=== PATIENT | female | born 1965 | race Hispanic/Latino ===

== ENCOUNTER 2022-06-22 12:24 | Inpatient (IN) | payer MEDICARE ==
[~2022-06-22] VITALS: Ht 152.4 cm; Wt 88.5 kg
[2022-06-22] MEDS ORDERED: ONDANSETRON HCL INJ 2MG/ML 2ML 2 MG/ML VIAL IV STA (15:18)
[2022-06-22] MEDS ORDERED: Vancomycin IV 1 GM in SODIUM CHLORIDE 0.9% 250ML 250 ML IV ONE (15:30)
[2022-06-22] MEDS ORDERED: Morphine 4mg INJECTION 4 MG/ML INJ IV ONE (15:30)
[2022-06-22] MEDS ORDERED: Vancomycin IV 1 GM VIAL ONE (15:38)
[2022-06-22] MEDS ORDERED: SODIUM CHLORIDE 0.9% 100 ML ONE (15:38)
[2022-06-22] MEDS ORDERED: SODIUM CHLORIDE 0.9% 250ML 250 ML ONE ×2 (15:38→18:49)
[2022-06-22] MEDS ORDERED: PIPERACILLIN/TAZOBACTAM 3.375 GM VIAL ONE (15:38)
[2022-06-22] MEDS ORDERED: CLINDAMYCIN 600MG / 50ML 50 ML IV ONE ×2 (15:57→16:00)
[2022-06-22] MEDS ORDERED: Clindamycin INJ 300 MG/50 ML 50 ML IV ONE ×2 (15:57→16:30)
[2022-06-22] MEDS ORDERED: SODIUM CHLORIDE FLUSH 10 ML SYR INJ PRN (17:00)
[2022-06-22] MEDS: CLINDAMYCIN PHOS 900MG/ 50ML 50 ML IV SCH (17:00)
[2022-06-22] MEDS ORDERED: Morphine 4mg INJECTION 4 MG/ML INJ IV PRN (17:00)
[2022-06-22] MEDS ORDERED: DEXTROSE 50% SYRINGE 50 ML IV PRN ×2 (17:00→23:00)
[2022-06-22] MEDS ORDERED: ONDANSETRON HCL INJ 2MG/ML 2ML 2 MG/ML VIAL IV PRN (17:00)
[2022-06-22] MEDS: LEVOFLOXACIN 500 MG TAB PO SCH (18:27)
[2022-06-22] MEDS ORDERED: GABAPENTIN600 MG PO (19:56)
[2022-06-22 21:16] VITALS: BP 103/71
[2022-06-22] MEDS: INSULIN LISPRO 100 UNIT/1 ML 3ML VIAL SQ SCH (21:36)
[2022-06-22 21:38] VITALS: BP 103/71
[2022-06-22] MEDS ORDERED: MELATONIN 5 MG TABLET PO PRN (23:00)
[2022-06-22] MEDS ORDERED: SIMETHICONE 80 MG CHEW PO PRN (23:00)
[2022-06-22] MEDS ORDERED: ALBUTEROL/IPRATROPIUM 3 ML NEB NEB PRN (23:00)
[2022-06-22] MEDS ORDERED: HYDRALAZINE HCL 20 MG/ML VIAL IV PRN (23:00)
[2022-06-22] MEDS ORDERED: HYDROCODONE/APAP 5MG-325MG TAB PO PRN (23:00)
[2022-06-22] MEDS ORDERED: BENZONATATE 100 MG CAP PO PRN (23:00)
[2022-06-22] MEDS ORDERED: DIPHENHYDRAMINE HCL 25 MG CAP PO PRN (23:00)
[2022-06-22] MEDS ORDERED: LIDOCAINE 4% PATCH TP PRN (23:00)
[2022-06-22] MEDS ORDERED: POTASSIUM CHLORIDE 20 MEQ TAB CR PO PRN (23:00)
[2022-06-23] MEDS ORDERED: IOPAMIDOL 370 MG/ML 100 ML INFUS..BTL INJ ONE (00:14)
[2022-06-23] MEDS: CLINDAMYCIN PHOS 900MG/ 50ML 50 ML IV SCH ×4 (00:44→23:57)
[2022-06-23 01:06] VITALS: BP 115/64
[2022-06-23 05:21] VITALS: BP 109/61
[2022-06-23 05:45] LABS: BASOPHILS % 0.4 % (0.0-1.0); EOSINOPHILS # (AUTO) 0.5 (0.0-0.4); EOSINOPHILS % 4.7 % (0.0-6.0); HEMATOCRIT 35.4 % (34.2-44.1); HEMOGLOBIN 11.2 g/dL (12.0-16.0); LYMPHOCYTES # (AUTO) 2.5 (1.0-3.2); LYMPHOCYTES % 24.9 % (18.0-39.1); MEAN CORPUSCULAR HEMOGLOBIN 28.8 pg (28-32); MEAN CORPUSCULAR HGB CONC 31.6 g/dL (31-35); MONOCYTES % 9.6 % (4.4-11.3); NEUTROPHILS % 59.9 % (38.7-80.0); PLATELET COUNT 312 x10e3/uL (140-360); RED BLOOD COUNT 3.89 x10e6/uL (3.6-5.1); RED CELL DISTRIBUTION WIDTH 12.3 % (11.7-14.4)
[2022-06-23 05:51] LABS: ALBUMIN 2.7 g/dL (3.5-5.0); ALBUMIN/GLOBULIN RATIO 0.7 (0.8-2.0); CALCIUM 8.5 mg/dL (8.4-10.2); CREATININE, SERUM 0.57 mg/dL (0.57-1.11)
[2022-06-23 06:08] LABS: MAGNESIUM 1.8 MG/DL (1.3-2.1); PHOSPHORUS 3.6 MG/DL (2.3-4.7)
[2022-06-23 06:28] LABS: THYROID STIMULATING HORMONE 3.691 uIU/mL (0.350-4.940)
[2022-06-23] MEDS: INSULIN LISPRO 100 UNIT/1 ML 3ML VIAL SQ SCH ×5 (07:30→19:33)
[2022-06-23 08:00] VITALS: BP_SYST 112; BP_DIAS 57; BP_DIAS 62
[2022-06-23] MEDS: PANTOPRAZOLE SOD 40 MG TABEC PO SCH (09:25)
[2022-06-23] MEDS: Morphine 2mg Syringe 2 MG/ML SYR IV PRN ×2 (09:46→17:33)
[2022-06-23] MEDS: ONDANSETRON HCL INJ 2MG/ML 2ML 2 MG/ML VIAL IV PRN ×2 (09:47→17:33)
[2022-06-23 12:05] VITALS: BP 110/65
[2022-06-23 16:02] VITALS: BP 104/60
[2022-06-23] MEDS ORDERED: ENOXAPARIN SOD INJ 40 MG/0.4 ML SYR SC SCH (17:00)
[2022-06-23] MEDS: LEVOFLOXACIN 500 MG TAB PO SCH (17:15)
[2022-06-24] VITALS (10 sets, daily range): BP systolic 100–131; BP diastolic 45–63
[2022-06-24] MEDS: Morphine 2mg Syringe 2 MG/ML SYR IV PRN ×4 (01:23→21:41)
[2022-06-24] MEDS: INSULIN LISPRO 100 UNIT/1 ML 3ML VIAL SQ SCH ×4 (06:44→21:49)
[2022-06-24] MEDS: PANTOPRAZOLE SOD 40 MG TABEC PO SCH (06:44)
[2022-06-24] MEDS: CLINDAMYCIN PHOS 900MG/ 50ML 50 ML IV SCH (09:41)
[2022-06-24] MEDS: ONDANSETRON HCL INJ 2MG/ML 2ML 2 MG/ML VIAL IV PRN ×2 (09:42→13:42)
[2022-06-24] MEDS ORDERED: HYDROCODONE/APAP 5MG-325MG TAB PO PRN (13:30)
[2022-06-24] MEDS: DOCUSATE SODIUM 100 MG CAP PO PRN (21:54)
[2022-06-25] VITALS (8 sets, daily range): BP systolic 115–147; BP diastolic 57–78
[2022-06-25] MEDS: Morphine 2mg Syringe 2 MG/ML SYR IV PRN ×3 (04:50→20:59)
[2022-06-25] MEDS: DIPHENHYDRAMINE HCL 25 MG CAP PO PRN (04:50)
[2022-06-25 05:46] LABS: BASOPHILS % 0.4 % (0.0-1.0); EOSINOPHILS # (AUTO) 0.4 (0.0-0.4); EOSINOPHILS % 4.4 % (0.0-6.0); HEMATOCRIT 35.1 % (34.2-44.1); HEMOGLOBIN 11.1 g/dL (12.0-16.0); LYMPHOCYTES # (AUTO) 2.2 (1.0-3.2); LYMPHOCYTES % 24.5 % (18.0-39.1); MEAN CORPUSCULAR HEMOGLOBIN 28.7 pg (28-32); MEAN CORPUSCULAR HGB CONC 31.6 g/dL (31-35); MEAN CORPUSCULAR VOLUME 90.7 fL (81-99); MONOCYTES # (AUTO) 0.7 (0.2-0.8); MONOCYTES % 7.9 % (4.4-11.3); NEUTROPHILS # (AUTO) 5.6 (2.1-6.9); NEUTROPHILS % 61.9 % (38.7-80.0); PLATELET COUNT 359 x10e3/uL (140-360); RED BLOOD COUNT 3.87 x10e6/uL (3.6-5.1); RED CELL DISTRIBUTION WIDTH 12.3 % (11.7-14.4)
[2022-06-25 06:07] LABS: ANION GAP 11.9 mmol/L (8-16); CALCIUM 8.4 mg/dL (8.4-10.2); CREATININE, SERUM 0.65 mg/dL (0.57-1.11); POTASSIUM 3.9 mmol/L (3.5-5.1)
[2022-06-25] MEDS: PANTOPRAZOLE SOD 40 MG TABEC PO SCH (09:57)
[2022-06-25] MEDS: INSULIN LISPRO 100 UNIT/1 ML 3ML VIAL SQ SCH ×5 (10:00→21:03)
[2022-06-25] MEDS: DOCUSATE SODIUM 100 MG CAP PO PRN (10:04)
[2022-06-25] MEDS ORDERED: SERTRALINE HCL100 MG PO (12:04)
[2022-06-25] MEDS: ACETAMINOPHEN 325 MG TAB PO PRN (12:07)
[2022-06-25] MEDS: SERTRALINE HCL 100 MG TAB PO SCH (14:39)
[2022-06-25 15:01] LABS: FREE T4 (FREE THYROXINE) 0.95 ng/dL (0.8-1.8); THYROID STIMULATING HORMONE 3.186 uIU/mL (0.350-4.940)
[2022-06-25] MEDS ORDERED: INSULIN GLARGINE 100 UNITS/ML VIAL SQ SCH (21:00)
[2022-06-26] VITALS (8 sets, daily range): BP systolic 117–143; BP diastolic 66–86
[2022-06-26] MEDS: Morphine 2mg Syringe 2 MG/ML SYR IV PRN ×2 (05:12→22:03)
[2022-06-26] MEDS: SERTRALINE HCL 100 MG TAB PO SCH (08:06)
[2022-06-26] MEDS: PANTOPRAZOLE SOD 40 MG TABEC PO SCH (08:06)
[2022-06-26] MEDS: ACETAMINOPHEN 325 MG TAB PO PRN (08:11)
[2022-06-26] MEDS: INSULIN LISPRO 100 UNIT/1 ML 3ML VIAL SQ SCH ×7 (08:49→21:00)
[2022-06-26] MEDS ORDERED: INSULIN GLARGINE 100 UNITS/ML VIAL SQ SCH (21:00)
[2022-06-26] MEDS ORDERED: SODIUM CHLORIDE 0.9% 250ML 250 ML ONE (22:13)
[2022-06-26] MEDS: DIPHENHYDRAMINE HCL 25 MG CAP PO PRN (23:46)
[2022-06-27] VITALS: BP 125/65
[2022-06-27 04:00] VITALS: BP 121/62
[2022-06-27 08:24] VITALS: BP 121/62
[2022-06-27] MEDS: SERTRALINE HCL 100 MG TAB PO SCH (09:08)
[2022-06-27] MEDS: PANTOPRAZOLE SOD 40 MG TABEC PO SCH (09:08)
[2022-06-27 09:15] VITALS: BP 127/84
[2022-06-27] MEDS: INSULIN LISPRO 100 UNIT/1 ML 3ML VIAL SQ SCH ×6 (09:45→16:30)
[2022-06-27 12:50] VITALS: BP 114/63
[2022-06-27] MEDS ORDERED: GLIPIZIDE ER5 MG PO (12:50)
[2022-06-27] MEDS ORDERED: CYCLOBENZAPRINE10 MG PO (12:52)
[2022-06-27 16:47] VITALS: BP 140/83
[2022-06-27] MEDS ORDERED: NEOMYCIN/POLYMYXIN/BACITRACIN 15 GM TUBE TOP PRN (18:00)
[2022-06-27] MEDS ORDERED: POVIDONE IODINE 0.05% 0.05 % ML PO ONE (18:30)
[2022-06-27] MEDS ORDERED: METOCLOPRAMIDE HCL 10 MG/2ML VIAL IV ONE (18:30)
[2022-06-27] MEDS ORDERED: ONDANSETRON HCL INJ 2MG/ML 2ML 2 MG/ML VIAL IV ONE (18:30)
[2022-06-27] MEDS ORDERED: ACETAMINOPHEN 1000 MG/100 ML IV ONE (18:30)
[2022-06-27] MEDS ORDERED: LIDOCAINE HCL 2% LOCAL INJ 5 ML SDV VIAL INJ ONE (18:30)
[2022-06-27] MEDS ORDERED: PROPOFOL IV EMULSION 10 MG/ML 20 ML VIAL IV ONE (18:30)
== END 2022-06-27 18:31 | disposition home or self-care (01) | DRG 623 ==
LOC: FSED 13:08 → ERHOLD 16:52 → MED/SURG3 18:18
PROVIDERS: ADMIT Internal Medicine; ATTEND Internal Medicine
PROC: 0H9CXZZ Drainage of Left Upper Arm Skin, External Approach (ICD-10-PCS; principal; 2022-06-22)
PROC: 0JBF0ZZ Excision of Left Upper Arm Subcutaneous Tissue and Fascia, Open Approach (ICD-10-PCS; 2022-06-24)
PROC: 0HDNXZZ Extraction of Left Foot Skin, External Approach (ICD-10-PCS; 2022-06-25)
PROC: 0HBRXZZ Excision of Toe Nail, External Approach (ICD-10-PCS; 2022-06-25)
PROC: 0HBRXZZ Excision of Toe Nail, External Approach (ICD-10-PCS; 2022-06-25)
PROC: 0HBRXZZ Excision of Toe Nail, External Approach (ICD-10-PCS; 2022-06-25)
PROC: 0HBRXZZ Excision of Toe Nail, External Approach (ICD-10-PCS; 2022-06-25)
PROC: 0HBRXZZ Excision of Toe Nail, External Approach (ICD-10-PCS; 2022-06-25)
DX: E11.628 Type 2 diabetes mellitus with other skin complications (principal); L02.412 Cutaneous abscess of left axilla; N39.0 Urinary tract infection, site not specified; Z16.12 Extended spectrum beta lactamase (ESBL) resistance; L03.112 Cellulitis of left axilla; E11.65 Type 2 diabetes mellitus with hyperglycemia; I10 Essential (primary) hypertension; B35.1 Tinea unguium; B96.20 Unspecified Escherichia coli [E. coli] as the cause of diseases classified elsewhere; E66.01 Morbid (severe) obesity due to excess calories; L98.8 Other specified disorders of the skin and subcutaneous tissue; R07.89 Other chest pain; F32.9 Major depressive disorder, single episode, unspecified; E78.5 Hyperlipidemia, unspecified; E11.42 Type 2 diabetes mellitus with diabetic polyneuropathy; F17.200 Nicotine dependence, unspecified, uncomplicated; Z83.3 Family history of diabetes mellitus; Z82.49 Family history of ischemic heart disease and other diseases of the circulatory system; Z68.38 Body mass index [BMI] 38.0-38.9, adult; Z88.0 Allergy status to penicillin; Z20.822 Contact with and (suspected) exposure to COVID-19
CPT/HCPCS: 36415; 80048; 80053; 81003; 81025; 82948; 83036; 83735; 84100; 84439; 84443; 84484; 85025; 87071; 87086; 87186; 87205; 93005; 96372; 99251; 99284; J0692; J1650; J1815; J2001; J2185; J2270; J2405; J2543; J2765; J3370; J7050; Q9967